=== PATIENT | male | born 1985 | race African-American/Black ===

== ENCOUNTER 2021-03-23 13:50 | Emergency (ER) | payer OTHER ==
[~2021-03-23] VITALS: Ht 198.1 cm; Wt 163.3 kg
--- NOTE | 2021-03-23 13:50 | NUR ---
PT BIB SELF C/O SUICIDAL AND HOMICDIAL IDEATION W/O SPECIFIC PLANS. PT IS AAOX4, NOT IN RESPIRATORY DISTRESS, V/S STABLE, KEPT RESTED AND COMFORTABLE. WILL CONTINUE TO MONITOR.
--- NOTE | 2021-03-23 14:46 | NUR ---
ER PHLEB AT BEDSIDE FOR BLOOD DRAW.
[2021-03-23 15:10] LABS: BASOPHILS % (AUTO) 0.6 % (0.0-2.0); EOSINOPHILS % (AUTO) 1.1 % (0.0-6.0); HEMATOCRIT 41 % (39-51); HEMOGLOBIN 13.5 g/dL (13.5-17.5); LYMPHOCYTES # (AUTO) 1.4 K/uL (0.8-4.8); LYMPHOCYTES % (AUTO) 18.2 % (20.0-44.0); MEAN CORPUSCULAR HGB CONC 33 g/dl (31.0-36.0); MEAN CORPUSCULAR VOLUME 90 fL (80-96); MONOCYTES # (AUTO) 0.9 K/uL (0.1-1.30); MONOCYTES % (AUTO) 11.7 % (2.0-12.0); NEUTROPHILS # (AUTO) 5.1 K/uL (1.8-8.9); NEUTROPHILS % (AUTO) 68.4 % (43.0-81.0); PLATELET COUNT (AUTO) 350 K/uL (150-450); WHITE BLOOD COUNT (AUTO) 7.5 K/uL (4.3-11.0)
[2021-03-23 15:39] LABS: ALANINE AMINOTRANSFERASE 36 U/L (12-78); ALBUMIN 4.2 g/dL (3.4-5.0); ALKALINE PHOSPHATASE 66 U/L (46-116); ASPARTATE AMINOTRANSFERASE 23 U/L (15-37); BILIRUBIN,DIRECT 0.1 mg/dL (0.0-0.2); BILIRUBIN,TOTAL 0.6 mg/dL (0.2-1.0); CALCIUM, SERUM 8.5 mg/dL (8.5-10.1); CARBON DIOXIDE 27 mmol/L (21-32); CHLORIDE 105 mmol/L (98-107); CREATININE 1.1 mg/dL (0.6-1.3); GLUCOSE 92 mg/dL (74-106); SODIUM SERUM 144 mmol/L (136-145); TOTAL PROTEIN, SERUM 7.7 g/dL (6.4-8.2); UREA NITROGEN, BLOOD 8 mg/dL (7-18)
[2021-03-23 15:42] LABS: ACETAMINOPHEN 0 ug/ml (10-30); ALCOHOL, BLOOD < 3 mg/dL (0-0)
--- NOTE | 2021-03-23 15:47 | NUR ---
URINE AND COVID SPECIMEN OBTAINED AND SENT TO LAB.
[2021-03-23 16:04] LABS: BILIRUBIN,URINE SMALL (NEGATIVE); COLOR,URINE YELLOW (YELLOW); NITRITE, URINE NEGATIVE (NEGATIVE); PROTEIN,URINE NEGATIVE (NEGATIVE); UGLUCOSE NEGATIVE (NEGATIVE); UROBILINOGEN,URINE 0.2 EU/dL (0.2)
[2021-03-23 16:13] LABS: BACTERIA,URINE Few /HPF (None Seen); LEUKOCYTE ESTERASE ,URINE 1+ (NEGATIVE); SQUAMOUS EPITHELIAL CELL,UR Few /HPF (None Seen); WBC,URINE 21-50 /HPF (0-3)
--- NOTE | 2021-03-23 17:23 | NUR ---
FAXED [facility] INTAKE CLINICALS AND FACE SHEET
--- NOTE | 2021-03-23 17:40 | NUR ---
[facility] INTAKE RECEIVED FAX
[2021-03-23] MEDS ORDERED: OLANZAPINE 10 MG VIAL IM ONE ×3 (18:17→18:30)
[2021-03-23] MEDS ORDERED: LIDOCAINE /MPF 1% VIAL 5 ML VIAL ONE (18:28)
[2021-03-23] MEDS ORDERED: DOXYCYCLINE HYCLATE (100 MG) 100 MG TABLET ONE (18:28)
[2021-03-23] MEDS ORDERED: CEFTRIAXONE 1 G VIAL ONE (18:28)
[2021-03-23] MEDS ORDERED: CEFTRIAXONE 1 G VIAL IM ONE (18:30)
[2021-03-23] MEDS ORDERED: DOXYCYCLINE HYCLATE (100 MG) 100 MG TABLET PO ONE ×2 (18:30→23:30)
--- NOTE | 2021-03-23 19:13 | NUR ---
PER ART WITH [facility] INTAKE, PT CLINICALS BEING REVIEWED BY EDE MARCIAL
--- NOTE | 2021-03-23 20:00 | NUR ---
PATIENT AMBULATES TO RESTROOM. RETURNED TO BED. PROVIDED WITH PO FLUIDS. WILL CONTINUE TO MONITOR.
--- NOTE | 2021-03-23 22:50 | NUR ---
CALLED [facility] INTAKE, ART STATES WILL CALL BACK WITHIN THE HOUR WITH STATUS UPDATE
[2021-03-23] MEDS ORDERED: DOXY100C2 PO (23:09)
--- NOTE | 2021-03-23 23:53 | NUR ---
TRANSFER INFO: PT ACCEPTED AT [facility], ADMITTING MD: FLY RN FOR REPORT [phone] EXT [phone]
--- NOTE | 2021-03-24 00:06 | NUR ---
CALLED [id number] ETA TO FOLLOW, RES#[id number]
[2021-03-24] MEDS ORDERED: DOXYCYCLINE HYCLATE (100 MG) 100 MG TABLET ONE (00:08)
--- NOTE | 2021-03-24 00:19 | NUR ---
[id number] CALLED BACK. ETA [phone]
--- NOTE | 2021-03-24 01:43 | NUR ---
REPORT GIVEN TO KRISTYN ARTHUR FOR JONNY AT THE [facility]
--- NOTE | 2021-03-24 02:27 | NUR ---
[facility] CALLED. ETA WILL BE DELAYED DUE TO NO AVAILABLE EQUIPMENT FOR TRANSPORT. THEY WILL CALL BACK WITH UPDATED ETA.
--- NOTE | 2021-03-24 02:33 | NUR ---
JOSÉ MIGUEL FROM [id number] CALLED BACK. UPDATED ETA [phone] RES #[id number]
--- NOTE | 2021-03-24 06:39 | NUR ---
REPORT GIVEN TO EMS FOR PATIENT TRANSFER OUT
[2021-03-24 06:50] VITALS: BP 151/87
--- NOTE | 2021-03-24 06:55 | NUR ---
PT LEFT ON GURNEY WITH 3 EMT. PT IS AMBUALTORY ON STEADY GAIT. NAD NOTED. PT IS IN STABLE CONDITION FOR TRANSPORT
== END 2021-03-24 06:59 ==
LOC: ER 13:56
DX: R45.851 Suicidal ideations (principal); F19.10 Other psychoactive substance abuse, uncomplicated; Z82.49 Family history of ischemic heart disease and other diseases of the circulatory system; R36.9 Urethral discharge, unspecified; R82.81 Pyuria; Z59.0 Homelessness; J45.909 Unspecified asthma, uncomplicated; R01.1 Cardiac murmur, unspecified; I10 Essential (primary) hypertension; Z20.822 Contact with and (suspected) exposure to COVID-19
CPT/HCPCS: 36415; 80048; 80076; 80143; 80307; 80320; 81001; 85025; 87077; 87086; 87426; 96372 ×2; 99285; C9803; J0696; J3490 ×2; G0480

== ENCOUNTER 2021-03-28 20:00 | Emergency (ER) | payer OTHER ==
[~2021-03-28] VITALS: Ht 193 cm; Wt 127.0 kg
[~2021-03-28 20:00] MED LIST: DOXY100C2 PO
[2021-03-28 20:06] VITALS: BP 145/81
--- NOTE | 2021-03-28 20:32 | NUR ---
PATIENT GOT AGITATED AND BROKE MONITOR
--- NOTE | 2021-03-28 20:40 | NUR ---
PATIENT LEFT THE FACILITY.
== END 2021-03-28 20:45 | disposition home or self-care (01) ==
LOC: ER 20:00
DX: F39 Unspecified mood [affective] disorder (principal); J45.909 Unspecified asthma, uncomplicated; I10 Essential (primary) hypertension; Z59.0 Homelessness; Z79.899 Other long term (current) drug therapy